=== PATIENT | male | born 1930 | race Caucasian/White ===

== ENCOUNTER → 2017-03-23 | Outpatient (CLI) | payer MEDICARE, OTHER ==
[2017-03-23 11:13] LABS: ALANINE AMINOTRANSFERASE 18 U/L (21-72); ALBUMIN 4.3 g/dL (3.5-5.0); ALKALINE PHOSPHATASE 130 U/L (38-126); ANION GAP 10 (5-19); ASPARTATE AMINO TRANSFERASE 25 U/L (17-59); BILIRUBIN,DIRECT 0.3 mg/dL (0.0-0.4); BILIRUBIN,TOTAL 1.1 mg/dL (0.2-1.3); BLOOD UREA NITROGEN 20 mg/dL (7-20); CALCIUM 9.4 mg/dL (8.4-10.2); CARBON DIOXIDE 28 mmol/L (22-30); CHLORIDE 102 mmol/L (98-107); CHOLESTEROL 153.41 mg/dL (0-200); CREATININE RESULT 0.95 mg/dL (0.52-1.25); Direct HDL 43 mg/dL (>40); GLUCOSE 98 mg/dL (75-110); POTASSIUM 4.7 mmol/L (3.6-5.0); SODIUM 140.1 mmol/L (137-145); TOTAL PROTEIN 7.2 g/dL (6.3-8.2); TRIGLYCERIDES 129 mg/dL (<150)
[2017-03-23 11:25] LABS: DIRECT LDL 85 mg/dL (<100)
== END ==
LOC: OD 10:08
PROVIDERS: ATTEND Internal Medicine
DX: Z01.810 Encounter for preprocedural cardiovascular examination (principal); I10 Essential (primary) hypertension; E78.5 Hyperlipidemia, unspecified; I34.0 Nonrheumatic mitral (valve) insufficiency; I66.9 Occlusion and stenosis of unspecified cerebral artery; I25.10 Atherosclerotic heart disease of native coronary artery without angina pectoris; M15.9 Polyosteoarthritis, unspecified; R42 Dizziness and giddiness; Z95.1 Presence of aortocoronary bypass graft; Z79.899 Other long term (current) drug therapy
CPT/HCPCS: 36415; 80053; 80061

== ENCOUNTER → 2017-10-18 | Outpatient (CLI) | payer MEDICARE, OTHER ==
[2017-10-18 09:38] LABS: ALANINE AMINOTRANSFERASE 12 U/L (21-72); ALBUMIN 4.3 g/dL (3.5-5.0); ALKALINE PHOSPHATASE 119 U/L (38-126); ANION GAP 7 (5-19); ASPARTATE AMINO TRANSFERASE 20 U/L (17-59); BILIRUBIN,DIRECT 0.2 mg/dL (0.0-0.4); BILIRUBIN,TOTAL 0.6 mg/dL (0.2-1.3); BLOOD UREA NITROGEN 20 mg/dL (7-20); CARBON DIOXIDE 29 mmol/L (22-30); CHLORIDE 104 mmol/L (98-107); CHOLESTEROL 217.77 mg/dL (0-200); GLUCOSE 97 mg/dL (75-110); POTASSIUM 4.7 mmol/L (3.6-5.0); TOTAL PROTEIN 6.8 g/dL (6.3-8.2); TRIGLYCERIDES 175 mg/dL (<150)
[2017-10-18 09:49] LABS: DIRECT LDL 151 mg/dL (<100)
== END ==
LOC: OD 08:20
PROVIDERS: ATTEND Internal Medicine
DX: I25.10 Atherosclerotic heart disease of native coronary artery without angina pectoris (principal); E78.5 Hyperlipidemia, unspecified; Z95.1 Presence of aortocoronary bypass graft; I34.0 Nonrheumatic mitral (valve) insufficiency; I66.9 Occlusion and stenosis of unspecified cerebral artery; I10 Essential (primary) hypertension; M15.9 Polyosteoarthritis, unspecified; R42 Dizziness and giddiness; Z79.899 Other long term (current) drug therapy
CPT/HCPCS: 36415; 80053; 80061

== ENCOUNTER 2019-10-05 07:35 | Emergency (ER) | payer MEDICARE, OTHER ==
[2019-10-05 09:21] LABS: ABSOLUTE BASOPHILS # (AUTO) 0.1 10^3/uL (0.0-0.2); ABSOLUTE EOSINOPHILS # (AUTO) 0.2 10^3/uL (0.0-0.6); ABSOLUTE NEUT (AUTO) 4.8 10^3/uL (1.7-8.2); BASOPHILS % (AUTO) 1.3 % (0-2); EOSINOPHILS % (AUTO) 2.6 % (0-6); HEMATOCRIT 36.1 % (37.9-51.0); HEMOGLOBIN 12.6 g/dL (13.5-17.0); LYMPHOCYTES % (AUTO) 14.5 % (13-45); MEAN CORPUSCULAR HEMOGLOBIN 31.9 pg (27.0-33.4); MEAN CORPUSCULAR VOLUME 91 fl (80-97); MONOCYTES % (AUTO) 13.8 % (3-13); PLATELET COUNT 163 10^3/uL (150-450); RED BLOOD COUNT 3.95 10^6/uL (4.35-5.55); RED CELL DISTRIBUTION WIDTH 14.3 % (11.5-14.0); SEGMENTED NEUTROPHILS % (AUTO) 67.8 % (42-78); TOTAL CELLS COUNTED % (AUTO) 100 %; WHITE BLOOD COUNT 7.1 10^3/uL (4.0-10.5)
[2019-10-05 09:47] LABS: ALBUMIN 3.5 g/dL (3.5-5.0); ALKALINE PHOSPHATASE 149 U/L (38-126); ANION GAP 6 (5-19); ASPARTATE AMINO TRANSFERASE 24 U/L (17-59); BILIRUBIN,DIRECT 0.2 mg/dL (0.0-0.4); BLOOD UREA NITROGEN 16 mg/dL (7-20); CALCIUM 8.8 mg/dL (8.4-10.2); CARBON DIOXIDE 28 mmol/L (22-30); CHLORIDE 102 mmol/L (98-107); GLUCOSE 111 mg/dL (75-110); TOTAL PROTEIN 6.5 g/dL (6.3-8.2)
[2019-10-05 09:49] LABS: CREATINE KINASE < 20 U/L (55-170)
[2019-10-05] MEDS ORDERED: NORMAL SALINE 1000 ML 1,000 ML IV ONE (09:51)
--- NOTE | 2019-10-05 09:59 | ER Document Report ---
ED General - General Chief Complaint: Near Syncope Stated Complaint: SYNCOPE Time Seen by Provider: 10/05/19 09:07 Primary Care Provider: JANAK AMEZCUA MD [Primary Care Provider] - Follow up as needed TRAVEL OUTSIDE OF THE [place] IN LAST 30 DAYS: No - HPI Notes: Patient presents emergency department for evaluation with . Patient is primarily noncommunicative, so history is obtained from her. Evidently he indicated to her that he needed to go to the bathroom. She stood him up and walked him to the bathroom, as she is not feel comfortable with him walking by himself. She noted that he had already been incontinent of urine, but he stated that he still had to urinate. She took him to the bathroom, he did urinate. Upon coming back, she went to change him. While he was standing, the patient had a near syncopal episode, and went "unresponsive." He seemed to be staring off into space, was not answering questions. He slumped down onto the bed. He did not fall. He was pale, became diaphoretic. This lasted for about 5 minutes. EMS was called, and by the time they arrived he was back to baseline. Patient's states that yesterday he did not seem as motivated during speech therapy, but otherwise states he has been taking his medications as prescribed. No fevers or chills, no nausea or vomiting. Eating and drinking normally. No other acute complaints or concerns. - Related Data Allergies/Adverse Reactions: No Known Allergies Allergy (Verified 10/05/19 09:18) Home Medications: ASA 81 mg daily. clopidogrel 75 mg daily. finasteride 5 mg daily. losartan 25 mg twice a day. gentamicin ophthalmic solution 1 drop in right eye every 4 hours. flomax. vitB12. vitD Past Medical History - General Information source: Patient - Social History Smoking Status: Unknown if Ever Smoked Family History: CAD, DM, Hypertension. denies: Malignancy Patient has suicidal ideation: No Patient has homicidal ideation: No - Past Medical History Cardiac Medical History: Reports: Hx Heart Attack, Hx Hypercholesterolemia, Hx Hypertension, Hx Peripheral Vascular Disease - Intracranial aneurysm Denies: Hx Coronary Artery Disease Pulmonary Medical History: Reports: Hx COPD Denies: Hx Asthma Neurological Medical History: Reports: Hx Cerebrovascular Accident. Denies: Hx Seizures Endocrine Medical History: Reports: Hx Diabetes Mellitus Type 2. Denies: Hx Diabetes Mellitus Type 1, Hx Hyperthyroidism, Hx Hypothyroidism Renal/ Medical History: Reports: Hx Benign Prostatic Hyperplasia GI Medical History: Denies: Hx Cirrhosis, Hx Crohn's Disease, Hx Hepatitis, Hx Ulcerative Colitis Musculoskeletal Medical History: Denies Hx Arthritis, Denies Hx Gout Skin Medical History: Denies Hx Eczema, Denies Hx Psoriasis Psychiatric Medical History: Reports: Hx Dementia Infectious Medical History: Denies: Hx Hepatitis Past Surgical History: Reports: Hx Cardiac Surgery - quad bypass, Hx Cholecystectomy, Hx Open Heart Surgery - CABGx4, Hx Orthopedic Surgery - Bilateral knee replacements, Hx Urinary Tract Surgery - prostate, Hx Vascular Surgery - Intercranial aneurysm treated with a coil Review of Systems - Review of Systems Constitutional: See HPI EENT: No symptoms reported Cardiovascular: See HPI Respiratory: No symptoms reported Gastrointestinal: No symptoms reported Genitourinary: See HPI Musculoskeletal: No symptoms reported Skin: No symptoms reported Neurological/Psychological: No symptoms reported Physical Exam - Vital signs Vitals: Pulse Ox 97 10/05/19 07:44 - Notes Notes: Is a pleasant 89-year-old male who appears her stated age, no acute distress. Vital signs reviewed, please refer to chart. Head is normocephalic, atraumatic. Pupils equal round, reactive to light. Neck is supple without meningismus. He art is regular rate and rhythm. Lungs are clear to auscultation bilaterally. Abdomen is soft, minimally tender in the suprapubic region without rebound or guarding, normoactive bowel sounds throughout. Extremities without cyanosis, clubbing. Posterior calves are nontender. Peripheral pulses are equal. Skin is warm and dry. Patient is awake, alert, cooperative with examiner. He is primarily noncommunicative with the exception of a few yes and no answers, according to this is his baseline. He moves all 4 extremities spontaneously. No pronator drift. Strength is 4+ out of 5 bilateral upper and lower extremities. No gross facial asymmetry. Course - Re-evaluation Re-evalutation: 10/05/19 10:02 Patient presents emergency department for evaluation. He had a near syncopal episode at home, was "unresponsive" per family. His vital signs here are unremarkable. Orthostatic vital signs did show a significant drop from the sitting to standing positions. I did review his echocardiogram from recent hospital stay, where he was shown to have a normal EF. Patient was given a liter of normal saline. Awaiting further laboratory investigations, we will continue to monitor. 10/05/19 12:34 Laboratory investigations found to be largely unremarkable. Patient given IV fluids secondary to his orthostasis. He is resting comfortably. Will repeat orthostatic vital signs. I spoke with Dr. Majano in regards to this patient. He knows the patient well, plans to come into the ED to evaluate him. Patient's family notified. 10/05/19 13:26 Dr. Majano came to the department and evaluated the patient. He agrees that this is likely vasovagal, blood pressure induced near syncope. He asked that the patient discontinue his Proscar, increase his Flomax to twice daily. The patient does have an event monitor in place, he will contact the company to evaluate for any sort of arrhythmia that may have caused his symptoms. Awaiting phone call. 10/05/19 13:52 No findings on event monitor. Patient will be discharged with close up with primary care and Dr. Majano. 10/05/19 13:53 Please note that urinalysis did have some whites and reds on microscopic evaluation. Urine culture sent. Dr. Majano states he will follow this up as an outpatient. - Vital Signs Vital signs: Temp Pulse Resp BP Pulse Ox 98.1 F 82 16 131/71 H 96 10/05/19 12:36 10/05/19 12:51 10/05/19 12:01 10/05/19 12:51 10/05/19 12:01 - Laboratory Result Diagrams: 10/05/19 08:55 10/05/19 08:55 Laboratory results interpreted by me: 10/05/19 10/05/19 10/05/19 08:55 08:55 10:00 RBC 3.95 L Hgb 12.6 L Hct 36.1 L RDW 14.3 H [place] % (Auto) 13.8 H Sodium 136.4 L Glucose 111 H Alkaline Phosphatase 149 H Creatine Kinase < 20 L Urine Blood SMALL H - EKG Interpretation by Me Additional EKG results interpreted by me: 10/05/19 10:03 Sinus mechanism with a rate of 64 bpm. Normal axis and intervals, no acute ST changes concerning for ischemia or infarction. Discharge - Discharge Clinical Impression: Near syncope Condition: Stable Disposition: HOME, SELF-CARE Instructions: Near Syncopal Episode ([facility]) Additional Instructions: Rest, stay well-hydrated. Please just continue your Proscar (finasteride) as discussed. Increase your Flomax to twice daily. Follow-up with Dr. Majano next week. Return to the emergency department for worsening or new concerning symptoms of any sort. Referrals: JANAK AMEZCUA MD [Primary Care Provider] - Follow up as needed
[2019-10-05 10:01] LABS: CREATINE KINASE MB < 0.22 ng/mL (<4.55); TROPONIN I < 0.012 ng/mL
[2019-10-05 10:34] LABS: AMORPHOUS SEDIMENT,URINE TRACE /HPF; APPEARANCE,URINE SLIGHTLY-CLOUDY; BILIRUBIN,URINE NEGATIVE (NEGATIVE); COLOR,URINE YELLOW; GLUCOSE, URINE NEGATIVE (NEGATIVE); KETONES,URINE NEGATIVE (NEGATIVE); LEUKOCYTE ESTERASE,URINE NEGATIVE (NEGATIVE); NITRITE,URINE NEGATIVE (NEGATIVE); PROTEIN,URINE NEGATIVE (NEGATIVE); URINE SPECIFIC GRAVITY 1.009; UROBILINOGEN,URINE NEGATIVE mg/dL (<2.0)
[2019-10-05 14:21] VITALS: BP 145/53
--- NOTE | 2019-10-05 20:56 | EKG REPORT ---
SEVERITY:- BORDERLINE ECG - SINUS RHYTHM BORDERLINE INFERIOR Q WAVES : Confirmed by: Eileen Nelson 05-Oct-2019 20:56:08
--- NOTE | 2019-10-05 23:25 | PDOC CONSULTATION ---
Consultation-Blank Consultation: CARDIOLOGY CONSULTATION by Dr. Rhonda Majano in the emergency room department. This was done on 10/05/2019 at 2 PM. 60 minutes spent as patient more than 50% time spent in direct patient care. REASON FOR CONSULTATION: Patient said to have orthostasis and near syncope. CONSULT REQUESTING PHYSICIAN Dr. Gonsalez, emergency room physician. HISTORY OF PRESENT ILLNESS: Note patient is noncommunicative due to dementia. Hence history obtained from the patient's . As per the the patient went to urinate and on coming back she found him to be suddenly diaphoretic and unresponsive and had a near syncopal episode. But the episode lasted for 5 minutes until the patient was made to sit down. There is no focal weakness. There was no seizure activity noted. The patient was found to have soiled his undergarments with urine, but the states that the patient is frequent urination and does have urine flow. There is no picture of the patient being in any discomfort during this episode. In view of the patient on communication no direct history of chest pain presence or absence or shortness of breath can be obtained, but the patient as per the did not show any signs of being unstable. At the time the patient had her monitor he was wearing which is ordered by my office. On questioning the event monitor personnel there was no arrhythmias seen. But it is not clear whether the patient or the patient's did press the button or not. The patient will continue to have event monitoring done. Of note the patient had a syncopal episode. And was admitted recently to this hospital. At that time his echo showed normal LV ejection fraction with borderline concentric LVH, and grade 2 LV diastolic dysfunction. There was no other significant findings. There was no significant pulmonary hypertension. At present the patient appears to be in no acute distress. He is nonverbal. The patient as per the is not known to have any fever chills or rigors. The patient did not appear to be uncomfortable or short of breath. Also it is not very clear from the whether the patient was straining to pass urine when he sustained this near syncopal episode. PAST MEDICAL HISTORY: The patient is a history of coronary artery disease history of coronary artery bypass graft surgery 1997. His last stress test was in 2014 and was negative. The patient is not known to have angina. He has been on Plavix since heart surgery he has had at least 2 CVAs in the past. One the most second 1 was most recent. He has a history of hyperlipidemia. This initially is Vytorin was discontinued due to the patient's cholesterol being low he also has a history of hypertension. He also has a history of sleep apnea. He has a history of enlarged prostate and has frequent urination. His only medications are Proscar and Flomax. The the patient continues to have symptoms of frequent urination, there is no history of asthma or COPD. He has a past history of anemia due to nosebleeds and had transfusions. There is no history of seizures or migraines. As per the ER physician's note the patient was found to have orthostasis, but there is no documentation of the standing and lying blood pressures. The patient blood pressure did improve with 1 L of normal saline. PAST surgical history.: History of coronary artery bypass graft surgery gallbladder surgery, hemorrhoidectomy prostate surgery and tonsillectomy. FAMILY HISTORY: Family history is positive for coronary artery disease and SD. Allergy: No Known Allergies. SOCIAL HISTORY: The patient does not smoke. There is no bowel abuse. RESUSCITATION STATUS: The patient is a full code. The patient's is his surrogate healthcare decision maker. REVIEW OF SYSTEMS: Is limited, and obtained from the patient's . There is no fever chills or rigors. The patient does have a slightly hearing loss. Ther e is no recent nosebleeds. There is no nausea vomiting. No definite evidence of chest pains. The patient does have dementia. No seizure activity. The patient is frequent urination. But does not seem to be uncomfortable when he passes urine suggestive of UTI or dysuria. He has no history of chronic kidney disease. There is no cough or sputum production. There is no wheezing. Rest of the review of symptoms are difficult to obtain. Current Medications Discontinued Medications Sodium Chloride (Nacl 0.9% 1000 Ml Iv Soln) 1,000 mls @ 0 mls/hr IV BOLUS ONE Stop: 10/05/19 09:52 Last Infusion: 10/05/19 11:11 Dose: Infused Documented by: He is on Proscar 5 mg p.o. daily. He is on Flomax 0.4 mg p.o. daily. He is on Plavix 75 mg p.o. daily. He is on Aricept 10 mg half a tablet at bedtime. PHYSICAL EXAMINATION: The patient is well-built in no acute distress. He is noncommunicative. Selected Entries 10/05/19 10/05/19 10/05/19 12:36 12:40 12:41 Temperature 98.1 F Heart Rate ( 67 Monitors) Respiratory 14 Rate Blood Pressure 143/48 H O2 Sat by Pulse 100 Oximetry HEAD: IS ATRAUMATIC NORMOCEPHALIC. EYES: PUPILS ARE EQUAL ROUND REGULAR REACTIVE TO LIGHT. ENT is negative. NECK: Supple. There is no JVD. Carotids are equal there is no bruits. There is no lymphadenopathy. There is no goiter. There is no accessory muscle respiration use. Trachea central. LUNGS: Is clear to auscultation percussion. There is no rhonchi rales or wheezing. HEART: S1-S2 is heard. There is no S3 gallop. There is no S4 gallop. There is systolic murmur left sternal border and the apex there is no rub. ABDOMEN: Soft. Nontender. There is no hepatosplenomegaly. Bowel sounds are well heard. EXTREMITIES: Femorals are diminished. There is no femoral bruits. Leg pulses are well felt. There is no pedal edema. There is no DVT or cellulitis. There is no cyanosis or clubbing. ELECTRONICS RECYCLER: The patient is conscious awake noncommunicative due to dementia. He moves all 4 extremities. PSYCHIATRIC: The patient does not appear to be actively agitated or anxious. Labs- Entire Visit 10/05/19 10/05/19 10/05/19 08:55 08:55 08:55 WBC 7.1 RBC 3.95 L Hgb 12.6 L Hct 36.1 L MCV 91 MCH 31.9 MCHC 35.0 RDW 14.3 H Plt Count 163 Lymph % (Auto) 14.5 [place] % (Auto) 13.8 H Eos % (Auto) 2.6 Baso % (Auto) 1.3 Absolute Neuts (auto) 4.8 Absolute Lymphs (auto) 1.0 Absolute Monos (auto) 1.0 Absolute Eos (auto) 0.2 Absolute Basos (auto) 0.1 Seg Neutrophils % 67.8 Sodium 136.4 L Potassium 4.0 Chloride 102 Carbon Dioxide 28 Anion Gap 6 BUN 16 Creatinine 0.86 Est GFR ( Amer) > 60 Est GFR (MDRD) Non-Af > 60 Glucose 111 H Calcium 8.8 Total Bilirubin 1.0 Direct Bilirubin 0.2 Neonat Total Bilirubin Not Reportable Neonat Direct Bilirubin Not Reportable Neonat Indirect Bili Not Reportable AST 24 ALT 8 Alkaline Phosphatase 149 H Creatine Kinase < 20 L CK-MB (CK-2) < 0.22 Troponin I < 0.012 Total Protein 6.5 Albumin 3.5 Urine Color Urine Appearance Urine pH Ur Specific [place] Urine Protein Urine Glucose (UA) Urine Ketones Urine Blood Urine Nitrite Urine Bilirubin Urine Urobilinogen Ur Leukocyte Esterase Urine WBC (Auto) Urine RBC (Auto) Amorphous Sediment Auto Urine Mucus (Auto) Urine Ascorbic Acid 10/05/19 10:00 WBC RBC Hgb Hct MCV MCH MCHC RDW Plt Count Lymph % (Auto) [place] % (Auto) Eos % (Auto) Baso % (Auto) Absolute Neuts (auto) Absolute Lymphs (auto) Absolute Monos (auto) Absolute Eos (auto) Absolute Basos (auto) Seg Neutrophils % Sodium Potassium Chloride Carbon Dioxide Anion Gap BUN Creatinine Est GFR ( Amer) Est GFR (MDRD) Non-Af Glucose Calcium Total Bilirubin Direct Bilirubin Neonat Total Bilirubin Neonat Direct Bilirubin Neonat Indirect Bili AST ALT Alkaline Phosphatase Creatine Kinase CK-MB (CK-2) Troponin I Total Protein Albumin Urine Color YELLOW Urine Appearance SLIGHTLY-CLOUDY Urine pH 7.0 Ur Specific [place] 1.009 Urine Protein NEGATIVE Urine Glucose (UA) NEGATIVE Urine Ketones NEGATIVE Urine Blood SMALL H Urine Nitrite NEGATIVE Urine Bilirubin NEGATIVE Urine Urobilinogen NEGATIVE Ur Leukocyte Esterase NEGATIVE Urine WBC (Auto) 2 Urine RBC (Auto) 3 Amorphous Sediment Auto TRACE Urine Mucus (Auto) RARE Urine Ascorbic Acid NEGATIVE EKG: Sinus rhythm. Within normal limits. IMPRESSION/RECOMMENDATION: 1. Near syncope and unresponsiveness. Most likely this is secondary to orthostasis although micturition syncope cannot be entirely excluded. On discussions with the prevent is physician representative the patient had no arrhythmias at that time of symptomatology. The patient's blood pressure seems to be stable now with IV fluids being given. After the IV fluids there is no further or thostasis. In view of this since the patient still has symptoms of enlarged prostate, would recommend discontinue the patient's Proscar and increase the patient's Flomax 2.4 mg p.o. twice daily. We will see if we can discuss the patient's prostate condition with his urologist. Also would continue the patient's 30-day event monitoring. We will follow-up the patient in the office. 2. Hypertension: Blood pressure at present seems to be well controlled. 3. Coronary artery disease: History of coronary artery bypass graft surgery. No evidence of unstable angina. Normal EKG. 4. Benign prostatic hypertrophy with frequent urination.. In view of this would send the patient's urine for culture and sensitivity to make sure the patient does not have a urinary tract infection. 5. History of CVA x2. No residual effects. Except for dementia. 6. Dementia: Continue Aricept. In. Frequent urination: We will follow-up with the patient's urine culture and sensitivity to see if the patient needs antibiotics, which will be started as an outpatient. Medications reviewed. Medications adjusted. Discussed the case with the hospital ER physician Dr. Gonsalez. Patient's cardiac status is stable. Will sign off since the patient can be discharged home. The patient's has my telephone number and will contact me if there should be any further problems. Will follow the patient up in the office next week. Medical decision making is of moderate to high complexity.
== END 2019-10-05 14:20 | disposition home or self-care (01) ==
LOC: ER 07:35
DX: R55 Syncope and collapse (principal); R10.819 Abdominal tenderness, unspecified site; N40.1 Benign prostatic hyperplasia with lower urinary tract symptoms; N39.498 Other specified urinary incontinence; I10 Essential (primary) hypertension; J44.9 Chronic obstructive pulmonary disease, unspecified; I25.2 Old myocardial infarction; E11.51 Type 2 diabetes mellitus with diabetic peripheral angiopathy without gangrene; Z79.82 Long term (current) use of aspirin; Z79.899 Other long term (current) drug therapy; Z79.02 Long term (current) use of antithrombotics/antiplatelets; Z95.1 Presence of aortocoronary bypass graft; Z86.73 Personal history of transient ischemic attack (TIA), and cerebral infarction without residual deficits
CPT/HCPCS: 93005; 99284; 96360; 36415; 87086; 82553; 82550; 85025; 80053; 81001; 84484; 93010; J7030